=== PATIENT | female | born 1950 | race Caucasian/White ===

== ENCOUNTER 2016-09-22 11:34 | Day surgery (SDC) | payer OTHER, MEDICARE, MEDICAID ==
[2016-09-22] MEDS ORDERED: Lidocaine 2% Inj (20ml) ONE (12:25)
[2016-09-22] MEDS ORDERED: Iodixanol 320 MG/ML 200 ML BOTTLE IV ONE (12:26)
[2016-09-22] MEDS ORDERED: Iohexol 350mgl/ml 50 ML ONE (12:26)
[2016-09-22] MEDS ORDERED: Phenylephrine 10 mg/ml Inj ONE (12:27)
[2016-09-22] MEDS ORDERED: DiphenhydrAMINE 50 mg/ml Inj ONE (12:30)
[2016-09-22] MEDS ORDERED: Famotidine 20mg/50ml 20 MG/50 ML BAG IVPB ONE (12:30)
[2016-09-22] MEDS ORDERED: Midazolam 2 MG/2 ML VIAL ONE (13:24)
[2016-09-22] MEDS ORDERED: Nitroglycerin 50mg in D5W 50 MG/250 ML BOTTLE IV ONE (13:26)
[2016-09-22] MEDS ORDERED: Bacitracin 500 Units/gm Oint Foilpak UD TOP ONE (14:33)
[2016-09-22 17:28] VITALS: TEMP 98.1
[2016-09-22] MEDS ORDERED: Bacitracin 500 Units/gm Oint Foilpak UD ONE (17:28)
[2016-09-22 18:31] VITALS: O2SAT 97
[2016-09-22 19:27] VITALS: RESP 18
--- NOTE | 2016-09-22 21:33 | CARD ---
APPROVED REPORT EKG Measurement Heart [id number] [place] [id number] <Conclusion> Normal sinus rhythm T wave Inversion in I and AVL. Prolonged QT Abnormal ECG
[2016-09-22 21:40] VITALS: PULSE 93
[2016-09-22 21:41] VITALS: BP 110/79
--- NOTE | 2016-10-01 01:39 | CARDCATH ---
PROCEDURE DATE: 09/22/2016 PROCEDURE: Left circumflex coronary angioplasty and drug-eluting stent placement. CLINICAL INDICATIONS: 1. Coronary artery disease. 2. Angina. 3. Non-ST elevation myocardial infarction. 4. Hypertension. 5. Hyperlipidemia. REFERRING PHYSICIAN: Jose Carlos Shen PERFORMING PHYSICIAN: Dr. Reji Freedman. PROCEDURE: After informed consent, the patient was prepped and draped in the usual sterile fashion. A 2% lidocaine was given in the right wrist for local anesthesia. Using micropuncture technique, 6-Welsh sheath was introduced right radial artery. The patient was preloaded with aspirin, Plavix, and IV heparin. ACT was maintained above 250. Left main coronary artery was engaged using EBU 3.5 6-Welsh guide catheter. Initial angiogram confirmed 99% concentric mid circumflex stenosis with JORDI-2 flow distally. The lesion was wired with run through 0.14 coronary wire. Predilated using 2.5 x 12 Compliant balloon. Stented using 2.75 x 18 Xience Alpine drug-eluting stent. Excellent final angiographic results with just JORDI-3 flow noted. Post-procedure, radial sheath was removed and Terumo radial band applied. IV hydration was given. CONCLUSIONS: 1. Successful balloon angioplasty and drug-eluting stent placement of the left circumflex coronary artery. Excellent final angiographic results. 2. Dual antiplatelet therapy for one year. 3. Aspirin 81, statins, and beta blockers for life time. Reji Freedman MD [facility]ITAL[facility]andrakant
== END 2016-09-22 22:33 | disposition short-term general hospital (02) ==
LOC: CATH 11:34 → 2RSO 15:45 → CATH 22:33
PROVIDERS: ATTEND Internal Medicine Cardiovascular Disease
DX: I21.4 Non-ST elevation (NSTEMI) myocardial infarction (principal); I25.119 Atherosclerotic heart disease of native coronary artery with unspecified angina pectoris; I10 Essential (primary) hypertension; E78.5 Hyperlipidemia, unspecified
CPT/HCPCS: 82948; 85175; 92928; 93005; 99152; 99153; C1725; C1769 ×3; C1887 ×3; J1200; J1644 ×2; J2250; J2930; J3010; Q9967